=== PATIENT | male | born 1955 | race Caucasian/White ===

== ENCOUNTER 2017-02-08 12:32 | Inpatient (IN) | payer BC ==
[~2017-02-08] VITALS: Ht 172.7 cm; Wt 63.5 kg
[2017-02-08 13:46] LABS: HEMATOCRIT 44.6 % (38.0-50.0); MCH 36.2 PG (29.0-34.0); MCHC 35.2 G/DL (30.0-36.0); MCV 102.8 FL (86-99); MEAN PLAT.VOLUME 8.9 uM^3 (9.0-12.4); PLATELET COUNT 193 K/uL (156-360); RBC DIS.WIDTH-SD 45.8 % (39-53); RED BLOOD COUNT 4.34 M/uL (4.00-5.50); WHITE BLOOD COUNT 10.5 K/uL (4.1-10.2)
[2017-02-08 13:54] LABS: CHLORIDE 96 mEq/L (99-109); POTASSIUM 3.9 mEq/L (3.7-5.4); SODIUM 138 mEq/L (136-147)
[2017-02-08 13:56] LABS: GLUCOSE 86 mg/dL (70-99)
[2017-02-08 13:57] LABS: ANION GAP 11 MEQ/L (2-14)
[2017-02-08 14:00] LABS: GFR ESTIMATE (CALCULATED) > 59 mL/min/; UREA NITROGEN (BUN) 15 mg/dL (9-23)
[2017-02-08 14:06] LABS: TROP-I INTERPRETATION NEGATIVE; TROPONIN-I < 0.01 ng/mL (0.0-0.30)
[2017-02-08 21:40] VITALS: BP 130/69
[2017-02-08] MEDS ORDERED: PERCOCET 5/31 TABLET PO (23:13)
[2017-02-09 00:16] VITALS: BP 116/73
[2017-02-09 06:08] LABS: HEMATOCRIT 43.1 % (38.0-50.0); MCH 36.9 PG (29.0-34.0); MCHC 35.7 G/DL (30.0-36.0); MCV 103.4 FL (86-99); MEAN PLAT.VOLUME 9.6 uM^3 (9.0-12.4); PLATELET COUNT 203 K/uL (156-360); RBC DIS.WIDTH-CV 12.2 % (11.8-14.6); RBC DIS.WIDTH-SD 46.5 % (39-53); RED BLOOD COUNT 4.17 M/uL (4.00-5.50); WHITE BLOOD COUNT 8.3 K/uL (4.1-10.2)
[2017-02-09 06:31] LABS: ANION GAP 11 MEQ/L (2-14); CHLORIDE 97 MEQ/L (99-109); GFR ESTIMATE (CALCULATED) > 59 mL/min/; POTASSIUM 4.3 MEQ/L (3.7-5.4); SAMPLE HEMOLYSIS CHECK 0; SAMPLE ICTERIC CHECK 0; SAMPLE LIPEMIA CHECK 0; SODIUM 136 MEQ/L (136-147); UREA NITROGEN (BUN) 16 mg/dL (9-23)
[2017-02-09 06:54] LABS: GLUCOSE 132 mg/dL (70-99)
[2017-02-09 07:58] VITALS: BP 120/72
[2017-02-09] MEDS ORDERED: PROAIR HFA8.5 GM IH (15:30)
[2017-02-09] MEDS ORDERED: PREDNISONE10 MG PO (15:31)
[2017-02-09] MEDS ORDERED: PROSCAR5 MG PO (15:31)
[2017-02-09] MEDS ORDERED: BROVANA15 MCG/2 M IH (15:32)
[2017-02-09] MEDS ORDERED: PULMICORT0.5 MG/21 IH (15:34)
[2017-02-09] MEDS ORDERED: SPIRIVA RESPIMAT4 GM IH (15:35)
[2017-02-09] MEDS ORDERED: CELEBREX200 MG PO (15:35)
[2017-02-09 15:36] VITALS: BP 131/70
[2017-02-09] MEDS ORDERED: DUONEB 2.5-0.5 M3 ML AEROSOL (15:37)
[2017-02-09] MEDS ORDERED: CENTRUM COMPLE1 EACH PO (15:50)
[2017-02-09 23:33] VITALS: BP 108/57
[2017-02-10 07:59] VITALS: BP 123/73
[2017-02-10] MEDS ORDERED: SPIRIVA RESPIMAT4 GM IH (09:38)
[2017-02-10] MEDS ORDERED: BROVANA15 MCG/2 M IH (09:38)
[2017-02-10] MEDS ORDERED: PULMICORT0.5 MG/21 IH (09:39)
[2017-02-10] MEDS ORDERED: CEFDINIR300 MG PO (09:41)
[2017-02-10] MEDS ORDERED: PREDNISONE10 MG PO (09:41)
== END 2017-02-10 12:01 | disposition home health service (06) | DRG 190 ==
LOC: EME 12:32 → EDOF 18:20 → 5SOUTH 18:20 → ENRESERV 18:21 → UNDODEPER 20:23 → ENRESERV 20:42 → 5SOUTH 21:16
PROVIDERS: Hospitalist
DX: J44.1 Chronic obstructive pulmonary disease with (acute) exacerbation (principal); J96.21 Acute and chronic respiratory failure with hypoxia; J20.9 Acute bronchitis, unspecified; R91.1 Solitary pulmonary nodule; G89.29 Other chronic pain; F17.210 Nicotine dependence, cigarettes, uncomplicated; Z82.3 Family history of stroke; Z83.3 Family history of diabetes mellitus; G47.33 Obstructive sleep apnea (adult) (pediatric)
CPT/HCPCS: 71020; 71275; 80048; 84484; 85027; 87040; 87070; 87205; 93005; 94640; 94640 76; 94799; 99202; 99281; 99285; J0696; J1650; J2920; J2930; J7050

== ENCOUNTER 2017-08-02 17:36 | Emergency (ER) | payer BC, OTHER ==
[~2017-08-02] VITALS: Ht 172.7 cm; Wt 59.6 kg
[~2017-08-02 17:36] MED LIST: BROVANA15 MCG/2 M IH; CEFDINIR300 MG PO; CELEBREX200 MG PO; CENTRUM COMPLE1 EACH PO; DUONEB 2.5-0.5 M3 ML AEROSOL; PERCOCET 5/31 TABLET PO; PREDNISONE10 MG PO; PROAIR HFA8.5 GM IH; PROSCAR5 MG PO; PULMICORT0.5 MG/21 IH; SPIRIVA RESPIMAT4 GM IH
[2017-08-02] MEDS ORDERED: PREDNISONE20 MG PO (18:00)
[2017-08-02] MEDS ORDERED: CHANTIX1 EACH PO (18:01)
[2017-08-02] MEDS ORDERED: BREO ELLIPTA 21 EACH IH (18:02)
[2017-08-02] MEDS ORDERED: DOXAZOSIN MESYLA1 MG PO (18:03)
[2017-08-02 18:08] LABS: BASOPHIL (%) 0.2 % (0-1); EOSINOPHIL (%) 0.1 % (0-5); HEMATOCRIT 35.2 % (38.0-50.0); HEMOGLOBIN 12.1 G/DL (12.5-16.6); IMMATURE GRANULOCYTE (%) 2.2 % (0.0-0.7); LYMPHOCYTE (%) 3.8 % (15-42); LYMPHOCYTE COUNT 0.5 K/uL (1.0-2.8); MCH 35.3 PG (29.0-34.0); MCHC 34.4 G/DL (30.0-36.0); MCV 102.6 FL (86-99); MONOCYTE (%) 4.3 % (3-12); MONOCYTE COUNT 0.5 K/uL (0-0.8); NEUTROPHIL (%) 89.4 % (45-76); NEUTROPHIL COUNT 11.1 K/uL (1.8-6.4); PLATELET COUNT 171 K/uL (156-360); RBC DIS.WIDTH-CV 12.3 % (11.8-14.6); RBC DIS.WIDTH-SD 46.2 % (39-53); RED BLOOD COUNT 3.43 M/uL (4.00-5.50); WHITE BLOOD COUNT 12.5 K/uL (4.1-10.2)
[2017-08-02 18:18] LABS: INTER. NORMALIZED RATIO 0.9
[2017-08-02 18:19] LABS: VENOUS PCO2 68 mm Hg (41-51)
[2017-08-02 18:20] LABS: CARBON DIOXIDE (BICARBONATE) > 40.0 MEQ/L (20-31)
[2017-08-02 18:21] LABS: CHLORIDE 98 mEq/L (99-109); POTASSIUM 4.9 mEq/L (3.7-5.4); SODIUM 138 mEq/L (136-147)
[2017-08-02 18:23] LABS: GLUCOSE 114 mg/dL (70-99)
[2017-08-02 18:27] LABS: CREATININE 0.7 mg/dL (0.6-1.3); GFR ESTIMATE (CALCULATED) > 59 mL/min/ (58.99-99999)
[2017-08-02 18:28] LABS: UREA NITROGEN (BUN) 19 mg/dL (9-23)
[2017-08-02 18:30] LABS: TROP-I INTERPRETATION NEGATIVE; TROPONIN-I < 0.01 ng/mL (0.0-0.30)
[2017-08-02 21:11] LABS: TROP-I INTERPRETATION NEGATIVE; TROPONIN-I < 0.01 ng/mL (0.0-0.30)
[2017-08-02] MEDS ORDERED: PREDNISONE10 M1 PO (21:15)
[2017-08-02 21:38] VITALS: BP 132/72
== END 2017-08-02 21:40 | disposition home or self-care (01) ==
LOC: EME 17:36
PROVIDERS: Emergency Medicine
DX: J44.1 Chronic obstructive pulmonary disease with (acute) exacerbation (principal); F17.200 Nicotine dependence, unspecified, uncomplicated
CPT/HCPCS: 71046; 80048; 82803; 84484; 85025; 85379; 85610; 87502; 93005; 94640; 99281; 99284; J7644

== ENCOUNTER 2017-11-09 19:50 | Inpatient (IN) | payer OTHER ==
[~2017-11-09] VITALS: Ht 172.7 cm; Wt 68.1 kg
[~2017-11-09 19:50] MED LIST changes: +BREO ELLIPTA 21 EACH IH; +CARDURA4 MG PO; +CHANTIX1 EACH PO; +PREDNISONE10 M1 PO; +PREDNISONE20 MG PO
[2017-11-09 20:53] LABS: HEMATOCRIT 46.3 % (38.0-50.0); HEMOGLOBIN 16.2 G/DL (12.5-16.6); MCV 102.9 FL (86-99); NRBC (%) 0.1 /100 WBC (0-0); PLATELET COUNT 271 K/uL (156-360); RBC DIS.WIDTH-CV 12.6 % (11.8-14.6); RBC DIS.WIDTH-SD 47.8 % (39-53); WHITE BLOOD COUNT 18.4 K/uL (4.1-10.2)
[2017-11-09 20:54] LABS: CARBON DIOXIDE (BICARBONATE) 39.2 MEQ/L (20-31)
[2017-11-09 21:01] LABS: CHLORIDE 90 mEq/L (99-109); POTASSIUM 4.1 mEq/L (3.7-5.4); SODIUM 133 mEq/L (136-147)
[2017-11-09 21:03] LABS: GLUCOSE 107 mg/dL (70-99)
[2017-11-09 21:06] LABS: CREATININE 0.8 mg/dL (0.6-1.3); GFR ESTIMATE (CALCULATED) > 59 mL/min/ (58.99-99999)
[2017-11-09 21:07] LABS: UREA NITROGEN (BUN) 9 mg/dL (9-23)
[2017-11-09 21:15] LABS: TROP-I INTERPRETATION NEGATIVE; TROPONIN-I 0.01 ng/mL (0.0-0.30)
[2017-11-09] MEDS ORDERED: VENTOLIN HFA18 GM IH (21:35)
[2017-11-09] MEDS ORDERED: INCRUSE ELLI62.5 MCG IH (21:36)
[2017-11-09] MEDS ORDERED: LEVAQUIN750 MG PO (21:39)
[2017-11-09] MEDS ORDERED: [UNRECOGNIZED DRUG - REMARK] BOTH EYES (21:41)
[2017-11-09] MEDS ORDERED: DUREZOL 0.100 DROP/5 RIGHT EYE (22:01)
[2017-11-09] MEDS ORDERED: ILEVRO1.7 ML RIGHT EYE (22:02)
[2017-11-09] MEDS ORDERED: AZOPT 1% O200 DROP/1 RIGHT EYE (22:04)
[2017-11-09] MEDS ORDERED: BESIVANCE5 ML RIGHT EYE (22:08)
[2017-11-10] VITALS (7 sets, daily range): BP systolic 113–144; BP diastolic 62–77
[2017-11-10 00:07] LABS: BICARBONATE 37.1 mEq/L (22-26); COMMENTS - BLOOD GASES A+C+; DEVICE HHFNC; FI02 60 %; O2 FLOW 40 L/MIN; O2 SATURATION (CALCULATED) 97.7 % (95-99); PCO2 79 mm Hg (35-45); PO2 85 mm Hg (80-100); SITE LR; TOTAL RESP RATE 24 resp/min; pH 7.28 (7.35-7.45)
[2017-11-10 05:02] LABS: HEMATOCRIT 43.1 % (38.0-50.0); HEMOGLOBIN 14.7 G/DL (12.5-16.6); MCH 35.6 PG (29.0-34.0); MCHC 34.1 G/DL (30.0-36.0); MCV 104.4 FL (86-99); PLATELET COUNT 242 K/uL (156-360); RBC DIS.WIDTH-CV 12.6 % (11.8-14.6); RBC DIS.WIDTH-SD 48.7 % (39-53); RED BLOOD COUNT 4.13 M/uL (4.00-5.50)
[2017-11-10 05:30] LABS: CHLORIDE 94 mEq/L (99-109); POTASSIUM 4.3 mEq/L (3.7-5.4); SODIUM 137 mEq/L (136-147)
[2017-11-10 05:33] LABS: GLUCOSE 233 mg/dL (70-99)
[2017-11-10 05:36] LABS: CREATININE 0.8 mg/dL (0.6-1.3); GFR ESTIMATE (CALCULATED) > 59 mL/min/ (58.99-99999); UREA NITROGEN (BUN) 10 mg/dL (9-23)
[2017-11-11 05:41] VITALS: BP 116/67
[2017-11-11 07:25] VITALS: BP 106/55
[2017-11-11 08:34] LABS: HEMATOCRIT 42.1 % (38.0-50.0); MCHC 33.3 G/DL (30.0-36.0); MCV 105.3 FL (86-99); PLATELET COUNT 215 K/uL (156-360); RBC DIS.WIDTH-CV 12.6 % (11.8-14.6); RBC DIS.WIDTH-SD 48.7 % (39-53); WHITE BLOOD COUNT 12.8 K/uL (4.1-10.2)
[2017-11-11 12:05] VITALS: BP 115/59
[2017-11-11 16:01] VITALS: BP 108/64
[2017-11-11 19:17] VITALS: BP 131/68
[2017-11-12] VITALS (7 sets, daily range): BP systolic 114–146; BP diastolic 62–73
[2017-11-12 05:12] LABS: HEMATOCRIT 40.7 % (38.0-50.0); HEMOGLOBIN 13.4 G/DL (12.5-16.6); MCH 34.4 PG (29.0-34.0); MCHC 32.9 G/DL (30.0-36.0); MCV 104.6 FL (86-99); PLATELET COUNT 199 K/uL (156-360); RBC DIS.WIDTH-CV 12.4 % (11.8-14.6); RBC DIS.WIDTH-SD 47.9 % (39-53); RED BLOOD COUNT 3.89 M/uL (4.00-5.50); WHITE BLOOD COUNT 12.4 K/uL (4.1-10.2)
[2017-11-12 05:46] LABS: CHLORIDE 98 MEQ/L (99-109); CREATININE 0.6 MG/DL (0.6-1.3); GFR ESTIMATE (CALCULATED) > 59 mL/min/ (58.99-99999); GLUCOSE 132 mg/dL (70-99); POTASSIUM 3.9 MEQ/L (3.7-5.4); SODIUM 137 MEQ/L (136-147); UREA NITROGEN (BUN) 16 mg/dL (9-23)
[2017-11-13 03:49] VITALS: BP 133/75
[2017-11-13 05:56] LABS: HEMATOCRIT 40.3 % (38.0-50.0); HEMOGLOBIN 13.4 G/DL (12.5-16.6); MCH 34.7 PG (29.0-34.0); MCHC 33.3 G/DL (30.0-36.0); MCV 104.4 FL (86-99); PLATELET COUNT 190 K/uL (156-360); RBC DIS.WIDTH-CV 12.2 % (11.8-14.6); RBC DIS.WIDTH-SD 47.2 % (39-53); RED BLOOD COUNT 3.86 M/uL (4.00-5.50); WHITE BLOOD COUNT 11.8 K/uL (4.1-10.2)
[2017-11-13 07:40] VITALS: BP 143/91
[2017-11-13] MEDS ORDERED: NICOTINE PATCH1 EAC2 TD (11:26)
[2017-11-13] MEDS ORDERED: AUGMENTIN875 MG PO (11:28)
== END 2017-11-13 12:54 | disposition home health service (06) | DRG 199 ==
LOC: EME 19:50 → 4EAST 11-10 00:47 → EDOF 11-10 00:47 → ENRESERV 11-10 00:49 → 4EAST 11-10 02:38
PROVIDERS: Emergency Medicine; Hospitalist
PROC: 0W9B30Z Drainage of Left Pleural Cavity with Drainage Device, Percutaneous Approach (ICD-10-PCS; principal; 2017-11-09)
DX: J93.83 Other pneumothorax (principal); J96.21 Acute and chronic respiratory failure with hypoxia; J96.22 Acute and chronic respiratory failure with hypercapnia; J44.1 Chronic obstructive pulmonary disease with (acute) exacerbation; J44.0 Chronic obstructive pulmonary disease with (acute) lower respiratory infection; J18.9 Pneumonia, unspecified organism; J98.2 Interstitial emphysema; Z99.81 Dependence on supplemental oxygen; E11.65 Type 2 diabetes mellitus with hyperglycemia; E87.2 Acidosis; I49.3 Ventricular premature depolarization; R91.1 Solitary pulmonary nodule; G89.29 Other chronic pain; M54.9 Dorsalgia, unspecified; R00.0 Tachycardia, unspecified; F17.200 Nicotine dependence, unspecified, uncomplicated
CPT/HCPCS: 36600; 71045; 71046; 80048; 82803; 82948; 83605; 83880; 84484; 85027; 87040; 87070; 87205; 93005; 93970; 94640; 94640 76; 94760; 94799; 99202; 99281; 99285; J0295; J1100; J1650; J2250; J2930; J3010; J7030; J7050; J7512

== ENCOUNTER 2017-11-26 13:30 | Inpatient (IN) | payer OTHER ==
[~2017-11-26] VITALS: Ht 172.7 cm; Wt 66.0 kg
[~2017-11-26 13:30] MED LIST changes: +AUGMENTIN875 MG PO; +AZOPT 1% O200 DROP/1 RIGHT EYE; +BESIVANCE5 ML RIGHT EYE; +DUREZOL 0.100 DROP/5 RIGHT EYE; +ILEVRO1.7 ML RIGHT EYE; +INCRUSE ELLI62.5 MCG IH; +LEVAQUIN750 MG PO; +NICOTINE PATCH1 EAC2 TD; +VENTOLIN HFA18 GM IH; +[UNRECOGNIZED DRUG - REMARK] BOTH EYES
[2017-11-26 15:17] LABS: COMMENTS - BLOOD GASES A+C+; DEVICE NC; O2 FLOW 3 L/MIN; SITE RR
[2017-11-26 15:19] LABS: pH 7.36 (7.35-7.45)
[2017-11-26 15:20] LABS: BICARBONATE 49.1 mEq/L (22-26); CARBOXY HGB 10.4 % (0-5); METHEMOGLOBIN 0.4 % (0-1.5); PCO2 87 mm Hg (35-45); PO2 58 mm Hg (80-100)
[2017-11-26 15:21] LABS: BASE EXCESS 18.3 mEq/L (-3 to +3)
[2017-11-26 15:45] LABS: BASOPHIL (%) 0.3 % (0-1); EOSINOPHIL (%) 0.3 % (0-5); HEMATOCRIT 43.2 % (38.0-50.0); HEMOGLOBIN 14.6 G/DL (12.5-16.6); IMMATURE GRANULOCYTE (%) 0.5 % (0.0-0.7); LYMPHOCYTE (%) 6.6 % (15-42); LYMPHOCYTE COUNT 0.5 K/uL (1.0-2.8); MCH 34.5 PG (29.0-34.0); MCHC 33.8 G/DL (30.0-36.0); MCV 102.1 FL (86-99); MONOCYTE (%) 7.7 % (3-12); MONOCYTE COUNT 0.6 K/uL (0-0.8); NEUTROPHIL (%) 84.6 % (45-76); NEUTROPHIL COUNT 6.4 K/uL (1.8-6.4); PLATELET COUNT 145 K/uL (156-360); RBC DIS.WIDTH-CV 13.2 % (11.8-14.6); RBC DIS.WIDTH-SD 49.9 % (39-53); RED BLOOD COUNT 4.23 M/uL (4.00-5.50); WHITE BLOOD COUNT 7.5 K/uL (4.1-10.2)
[2017-11-26 15:53] LABS: ALBUMIN 3.6 g/dL (3.2-4.8)
[2017-11-26 15:54] LABS: CHLORIDE 83 mEq/L (99-109); POTASSIUM 3.7 mEq/L (3.7-5.4); SODIUM 133 mEq/L (136-147)
[2017-11-26 15:56] LABS: GLUCOSE 93 mg/dL (70-99)
[2017-11-26 15:58] LABS: TOTAL BILIRUBIN 0.8 mg/dL (0.0-1.0)
[2017-11-26 15:59] LABS: ALKALINE PHOSPHATASE 85 IU/L (3-129)
[2017-11-26 16:00] LABS: CREATININE 0.6 mg/dL (0.6-1.3); GFR ESTIMATE (CALCULATED) > 59 mL/min/ (58.99-99999)
[2017-11-26 16:01] LABS: AST (GOT) 20 IU/L (2-34); UREA NITROGEN (BUN) 8 mg/dL (9-23)
[2017-11-26 16:02] LABS: ALT (GPT) 17 IU/L (3-49)
[2017-11-26 16:08] LABS: CARBON DIOXIDE (BICARBONATE) > 40.0 mEq/L (20-31)
[2017-11-26 16:09] LABS: TROP-I INTERPRETATION NEGATIVE; TROPONIN-I < 0.01 ng/mL (0.0-0.30)
[2017-11-26] MEDS ORDERED: DUONEB 2.5-0.5 M3 ML AEROSOL (17:13)
[2017-11-26] MEDS ORDERED: LASIX20 MG PO (17:14)
[2017-11-26 19:20] LABS: CARBOXY HGB 9 % (0-5); COMMENTS - BLOOD GASES A+C+; DEVICE NC; METHEMOGLOBIN 1.1 % (0-1.5); O2 FLOW 4 L/MIN; PCO2 87 mm Hg (35-45); PO2 62 mm Hg (80-100); SITE RR; pH 7.37 (7.35-7.45)
[2017-11-26 19:21] LABS: BASE EXCESS 19.6 mEq/L (-3 to +3); BICARBONATE 50.3 mEq/L (22-26)
[2017-11-26 22:15] VITALS: BP 130/69
[2017-11-27] VITALS (17 sets, daily range): BP systolic 89–139; BP diastolic 59–76
[2017-11-27 00:30] LABS: COMMENTS - BLOOD GASES C+; SITE LR
[2017-11-27 00:31] LABS: DEVICE NC; O2 FLOW 3 L/MIN; TOTAL RESP RATE 20 resp/min
[2017-11-27 00:32] LABS: BASE EXCESS 23.7 mEq/L (-3 to +3); BICARBONATE 54.5 mEq/L (22-26); CARBOXY HGB 7.2 % (0-5); METHEMOGLOBIN 1.1 % (0-1.5); PCO2 88 mm Hg (35-45); PO2 53 mm Hg (80-100)
[2017-11-27 05:33] LABS: HEMATOCRIT 43.6 % (38.0-50.0); HEMOGLOBIN 14.3 G/DL (12.5-16.6); MCH 33.7 PG (29.0-34.0); MCHC 32.8 G/DL (30.0-36.0); MCV 102.8 FL (86-99); PLATELET COUNT 155 K/uL (156-360); RBC DIS.WIDTH-CV 12.9 % (11.8-14.6); RBC DIS.WIDTH-SD 48.5 % (39-53); RED BLOOD COUNT 4.24 M/uL (4.00-5.50); WHITE BLOOD COUNT 5.4 K/uL (4.1-10.2)
[2017-11-27 05:54] LABS: CHLORIDE 88 MEQ/L (99-109); CREATININE 0.6 MG/DL (0.6-1.3); GFR ESTIMATE (CALCULATED) > 59 mL/min/ (58.99-99999); POTASSIUM 4.3 MEQ/L (3.7-5.4); SODIUM 137 MEQ/L (136-147); UREA NITROGEN (BUN) 12 mg/dL (9-23)
[2017-11-27 05:59] LABS: GLUCOSE 157 mg/dL (70-99)
[2017-11-27 06:12] LABS: CARBON DIOXIDE (BICARBONATE) > 40.0 MEQ/L (20-31)
[2017-11-27 08:44] LABS: FOLIC ACID (FOLATE) 7.1 NG/ML (5.0-22.0)
[2017-11-27 08:59] LABS: CARBOXY HGB 5.2 % (0-5); COMMENTS - BLOOD GASES A+C+; DEVICE NC; O2 FLOW 6 L/MIN; O2 SATURATION (CALCULATED) 80.2 % (95-99); PCO2 77 mm Hg (35-45); PO2 43 mm Hg (80-100); SITE RR; pH 7.41 (7.35-7.45)
[2017-11-27 09:00] LABS: BASE EXCESS 19.5 mEq/L (-3 to +3); BICARBONATE 48.8 mEq/L (22-26)
[2017-11-28 03:54] VITALS: BP 119/64
[2017-11-28 05:55] LABS: BASOPHIL (%) 0.1 % (0-1); EOSINOPHIL (%) 0 % (0-5); HEMATOCRIT 38.3 % (38.0-50.0); HEMOGLOBIN 12.5 G/DL (12.5-16.6); IMMATURE GRANULOCYTE (%) 0.3 % (0.0-0.7); LYMPHOCYTE (%) 2.2 % (15-42); LYMPHOCYTE COUNT 0.3 K/uL (1.0-2.8); MCH 34.2 PG (29.0-34.0); MCHC 32.6 G/DL (30.0-36.0); MCV 104.6 FL (86-99); MONOCYTE (%) 4.1 % (3-12); MONOCYTE COUNT 0.5 K/uL (0-0.8); NEUTROPHIL (%) 93.3 % (45-76); PLATELET COUNT 132 K/uL (156-360); RBC DIS.WIDTH-CV 13.1 % (11.8-14.6); RBC DIS.WIDTH-SD 50.2 % (39-53); RED BLOOD COUNT 3.66 M/uL (4.00-5.50); WHITE BLOOD COUNT 11.8 K/uL (4.1-10.2)
[2017-11-28 06:41] LABS: ALBUMIN 3.1 G/DL (3.2-4.8); ALKALINE PHOSPHATASE 59 IU/L (3-129); ALT (GPT) 12 IU/L (3-49); AST (GOT) 13 IU/L (2-34); CHLORIDE 94 MEQ/L (99-109); CREATININE 0.5 MG/DL (0.6-1.3); GFR ESTIMATE (CALCULATED) > 59 mL/min/ (58.99-99999); GLUCOSE 177 mg/dL (70-99); POTASSIUM 4.2 MEQ/L (3.7-5.4); SODIUM 138 MEQ/L (136-147); TOTAL BILIRUBIN 0.3 MG/DL (0.0-1.0); TOTAL PROTEIN 4.9 G/DL (6.4-8.3); UREA NITROGEN (BUN) 17 mg/dL (9-23)
[2017-11-28 07:51] VITALS: BP 121/65
[2017-11-28 10:50] LABS: COMMENTS - BLOOD GASES +C; DEVICE HFNC; PCO2 75 mm Hg (35-45); PO2 74 mm Hg (80-100); SITE LR +A; TOTAL RESP RATE 32 resp/min; pH 7.36 (7.35-7.45)
[2017-11-28 10:51] LABS: BASE EXCESS 13.4 mEq/L (-3 to +3); BICARBONATE 42.4 mEq/L (22-26); CARBOXY HGB 2.7 % (0-5); METHEMOGLOBIN 0.7 % (0-1.5); O2 SATURATION (CALCULATED) 96.5 % (95-99)
[2017-11-28 12:27] LABS: O2 FLOW 9 L/MIN
[2017-11-28 12:59] VITALS: BP 130/69
[2017-11-28 16:00] VITALS: BP 130/65
[2017-11-28 18:53] VITALS: BP 151/66
[2017-11-28 22:29] VITALS: BP 133/59
[2017-11-29] VITALS (11 sets, daily range): BP systolic 105–146; BP diastolic 61–98
[2017-11-29 05:22] LABS: BASOPHIL (%) 0.1 % (0-1); EOSINOPHIL (%) 0 % (0-5); HEMATOCRIT 38.2 % (38.0-50.0); HEMOGLOBIN 12.2 G/DL (12.5-16.6); IMMATURE GRANULOCYTE (%) 0.6 % (0.0-0.7); LYMPHOCYTE COUNT 0.5 K/uL (1.0-2.8); MCH 33.8 PG (29.0-34.0); MCHC 31.9 G/DL (30.0-36.0); MCV 105.8 FL (86-99); MONOCYTE (%) 3.5 % (3-12); MONOCYTE COUNT 0.4 K/uL (0-0.8); NEUTROPHIL (%) 91.8 % (45-76); NEUTROPHIL COUNT 11.1 K/uL (1.8-6.4); PLATELET COUNT 141 K/uL (156-360); RBC DIS.WIDTH-CV 12.8 % (11.8-14.6); RBC DIS.WIDTH-SD 50.3 % (39-53); RED BLOOD COUNT 3.61 M/uL (4.00-5.50); WHITE BLOOD COUNT 12.1 K/uL (4.1-10.2)
[2017-11-29 05:54] LABS: CHLORIDE 96 MEQ/L (99-109); CREATININE 0.5 MG/DL (0.6-1.3); GFR ESTIMATE (CALCULATED) > 59 mL/min/ (58.99-99999); GLUCOSE 140 mg/dL (70-99); POTASSIUM 4.6 MEQ/L (3.7-5.4); SODIUM 140 MEQ/L (136-147); UREA NITROGEN (BUN) 20 mg/dL (9-23)
[2017-11-29 06:15] LABS: CARBON DIOXIDE (BICARBONATE) > 40.0 MEQ/L (20-31)
[2017-11-29 13:56] LABS: COMMENTS - BLOOD GASES A+C+; DEVICE NCHF; O2 FLOW 10 L/MIN; PCO2 78 mm Hg (35-45); PO2 70 mm Hg (80-100); SITE RR; pH 7.34 (7.35-7.45)
[2017-11-29 13:57] LABS: BASE EXCESS 12.5 mEq/L (-3 to +3); BICARBONATE 42.1 mEq/L (22-26); CARBOXY HGB 2.3 % (0-5); METHEMOGLOBIN 0.7 % (0-1.5)
[2017-11-29 18:31] LABS: THYROTROPIN (TSH) 0.13 MIU/L (0.4-5.5)
[2017-11-30] VITALS (13 sets, daily range): BP systolic 97–151; BP diastolic 59–105
[2017-11-30 05:38] LABS: HEMATOCRIT 38.7 % (38.0-50.0); HEMOGLOBIN 12.3 G/DL (12.5-16.6); MCH 33.9 PG (29.0-34.0); MCHC 31.8 G/DL (30.0-36.0); MCV 106.6 FL (86-99); PLATELET COUNT 148 K/uL (156-360); RBC DIS.WIDTH-CV 12.7 % (11.8-14.6); RBC DIS.WIDTH-SD 50.4 % (39-53); RED BLOOD COUNT 3.63 M/uL (4.00-5.50); WHITE BLOOD COUNT 12.1 K/uL (4.1-10.2)
[2017-11-30 06:08] LABS: CHLORIDE 97 MEQ/L (99-109); CREATININE 0.5 MG/DL (0.6-1.3); GFR ESTIMATE (CALCULATED) > 59 mL/min/ (58.99-99999); GLUCOSE 172 mg/dL (70-99); POTASSIUM 4.5 MEQ/L (3.7-5.4); SODIUM 140 MEQ/L (136-147); UREA NITROGEN (BUN) 22 mg/dL (9-23)
[2017-12-01] VITALS (12 sets, daily range): BP systolic 108–196; BP diastolic 55–88
[2017-12-01 05:27] LABS: BASOPHIL (%) 0 % (0-1); EOSINOPHIL (%) 0 % (0-5); HEMATOCRIT 39.7 % (38.0-50.0); HEMOGLOBIN 12.5 G/DL (12.5-16.6); IMMATURE GRANULOCYTE (%) 0.5 % (0.0-0.7); LYMPHOCYTE (%) 4.2 % (15-42); LYMPHOCYTE COUNT 0.4 K/uL (1.0-2.8); MCHC 31.5 G/DL (30.0-36.0); MCV 107.9 FL (86-99); MONOCYTE (%) 6.2 % (3-12); MONOCYTE COUNT 0.6 K/uL (0-0.8); NEUTROPHIL (%) 89.1 % (45-76); PLATELET COUNT 152 K/uL (156-360); RBC DIS.WIDTH-CV 12.8 % (11.8-14.6); RBC DIS.WIDTH-SD 51.1 % (39-53); RED BLOOD COUNT 3.68 M/uL (4.00-5.50); WHITE BLOOD COUNT 10.1 K/uL (4.1-10.2)
[2017-12-01 05:56] LABS: CHLORIDE 96 MEQ/L (99-109); CREATININE 0.5 MG/DL (0.6-1.3); GFR ESTIMATE (CALCULATED) > 59 mL/min/ (58.99-99999); GLUCOSE 135 mg/dL (70-99); MAGNESIUM 2.3 mg/dl (1.3-2.7); PHOSPHORUS 2.4 mg/dL (2.5-4.9); POTASSIUM 4.9 MEQ/L (3.7-5.4); SODIUM 139 MEQ/L (136-147); UREA NITROGEN (BUN) 23 mg/dL (9-23)
[2017-12-01 06:13] LABS: CARBON DIOXIDE (BICARBONATE) > 40.0 MEQ/L (20-31)
[2017-12-02] VITALS: BP 165/49
[2017-12-02 04:00] VITALS: BP 157/89
[2017-12-02 08:02] VITALS: BP 158/77
[2017-12-02 12:55] VITALS: BP 161/84
[2017-12-02] MEDS ORDERED: DILTIAZEM 24HR240 MG PO (14:51)
[2017-12-02] MEDS ORDERED: ADVAIR 250/501 DISK IH (14:52)
[2017-12-02] MEDS ORDERED: HYOSCYAMINE0.125 M1 SL (14:59)
[2017-12-02] MEDS ORDERED: CEFDINIR300 MG PO (15:01)
[2017-12-02] MEDS ORDERED: ATIVAN0.5 MG PO (15:02)
[2017-12-02] MEDS ORDERED: MORPHINE CON20 MG/M1 PO (15:02)
[2017-12-02] MEDS ORDERED: PREDNISONE10 MG PO (15:02)
[2017-12-02 16:03] VITALS: BP 171/107
== END 2017-12-02 18:52 | disposition hospice, home (50) | DRG 190 ==
LOC: EME 13:30 → 4WEST 19:27 → EDOF 19:27 → ENRESERV 19:28 → 4EAST 21:56 → ENRESERV 11-27 00:36 → 4WEST 11-27 00:37 → ENRESERV 11-27 08:36 → 5SOUTH 11-27 14:56 → ENRESERV 11-28 11:29 → 4EAST 11-28 12:46 → ENRESERV 11-29 15:38 → 4WEST 11-29 15:40 → ENPENDDIS 12-02 → CANRESERV 12-02 12:58 → ENRESERV 12-02 12:58 → 4WEST 12-02 18:52
PROVIDERS: Emergency Medicine; Hospitalist; Internal Medicine; Specialist; Student in an Organized Health Care Education/Training Program
DX: J44.1 Chronic obstructive pulmonary disease with (acute) exacerbation (principal); J96.21 Acute and chronic respiratory failure with hypoxia; Z66 Do not resuscitate; Z51.5 Encounter for palliative care; I48.91 Unspecified atrial fibrillation; J96.22 Acute and chronic respiratory failure with hypercapnia; E87.2 Acidosis; J44.0 Chronic obstructive pulmonary disease with (acute) lower respiratory infection; G89.29 Other chronic pain; J20.9 Acute bronchitis, unspecified; F11.20 Opioid dependence, uncomplicated; F10.20 Alcohol dependence, uncomplicated; F17.210 Nicotine dependence, cigarettes, uncomplicated; Z91.19 Patient's noncompliance with other medical treatment and regimen; Z99.81 Dependence on supplemental oxygen; Z83.3 Family history of diabetes mellitus
CPT/HCPCS: 36600; 71045; 71046; 71275; 80048; 80053; 82607; 82746; 82803; 83605; 83735; 83880; 84100; 84439; 84443; 84484; 85025; 85027; 87040; 87070; 87205; 87641; 93005; 93306; 93971; 94002; 94640; 94640 76; 94660; 94799; 97530 GO; 99202; 99281; 99285; J0295; J2930; J7030; J7050